=== PATIENT | male | born 1980 | race Hispanic/Latino ===

== ENCOUNTER 2021-03-08 08:38 | Emergency (ER) | payer SELFPAY ==
[~2021-03-08] VITALS: Ht 156.7 cm; Wt 70.0 kg
[~2021-03-08 08:38] MED LIST: CIPROFLOXACN500 MG PO; FLAGYL500 MG PO; LORTAB5 PO; NO MEDS; PERCOCET 5/325M1 TAB PO; POLYTRIM OP
[2021-03-08 09:20] LABS: HEMATOCRIT 42.2 % (39.0-50.0); HEMOGLOBIN 14.2 g/dl (14.0-18.0); MEAN CELL VOLUME 91.7 fL CALC (80.0-100.0); MEAN CORPUSCULAR HGB 30.9 pG CALC (26.0-32.0); MEAN CORPUSCULAR HGB CONC 33.6 g/dL CAL (32.0-36.0); NEUT# 3.37 thou/uL (1.82-7.42); RED BLOOD COUNT 4.6 mill/uL (4.70-6.10); RED CELL DISTRI WIDTH 12.3 % (11.5-15.5)
[2021-03-08 09:23] LABS: URINE BLOOD DIPSTICK NEGATIVE (NEGATIVE); URINE COLOR YELLOW; URINE GLUCOSE - DIPSTICK NEGATIVE (NEGATIVE); URINE KETONE TRACE mg/dL (NEGATIVE); URINE LEUK ESTERASE NEGATIVE (NEGATIVE); URINE PH 6.5 (4.5-8.0); URINE PROTEIN - DIPSTICK NEGATIVE (NEG-TRACE); URINE SPECIFIC GRAVITY 1.025; URINE UROBILINOGEN - DIPSTICK 0.2 E.U./dL (0.2)
[2021-03-08 09:25] LABS: URINE BILIRUBIN - DIPSTICK SMALL (NEGATIVE)
[2021-03-08 09:26] LABS: URINE NITRITE - DIPSTICK NEGATIVE (Negative)
[2021-03-08 09:56] LABS: ALBUMIN 4.8 g/dL (3.2-5.0); ALKALINE PHOSPHATASE 77 u/l (38-126); AMYLASE 62 u/l (30-110); ANION GAP 15 (6-22 (CALC)); BILIRUBIN, TOTAL 0.8 mg/dL (0.0-1.4); BUN 14 mg/dL (9-20); BUN/CREATININE RATIO 19 (12-20 (CALC)); CARBON DIOXIDE 26 mmol/l (22-30); CHLORIDE 103 mmol/l (95-108); CREATININE 0.7 mg/dL (0.7-1.3); GFR > 60 ML/MIN (>=60 (CALC)); GFR FOR AFR.AMER. > 60 ML/MIN (>=60 (CALC)); LIPASE 81 u/l (23-300); SGOT/AST 33 u/l (17-59); SODIUM 140 mmol/l (137-146); TOTAL PROTEIN 8.4 g/dL (6.3-8.2)
[2021-03-08 11:56] VITALS: BP 128/60
== END 2021-03-08 11:56 | disposition home or self-care (01) | DRG 392 ==
LOC: ED 08:38
PROVIDERS: Emergency Medicine
DX: R10.84 Generalized abdominal pain (principal); R05.9 Cough, unspecified; R68.2 Dry mouth, unspecified; H04.129 Dry eye syndrome of unspecified lacrimal gland; Z20.822 Contact with and (suspected) exposure to COVID-19
CPT/HCPCS: Q9967